=== PATIENT | female | born 1940 | race Two or more races ===

== ENCOUNTER 2020-05-31 05:45 | Day surgery (SDC) | payer OTHER ==
[~2020-05-31 05:45] MED LIST: ATACAND HCT 161 EACH PO; CALCIUM500 M2 PO; LORAZEPAM2 MG/M1; LOSARTAN-HCTZ1 EACH; MAGNESIUM200 MG PO; ONE DAILY MUL400 MCG PO; TRAZODONE HCL50 MG PO; ZOCOR20 MG
[2020-05-31] MEDS ORDERED: ULTRAM50 MG PO (09:00)
[2020-05-31] MEDS ORDERED: NEURONTIN300 MG PO (09:02)
== END 2020-05-31 14:05 | disposition home or self-care (01) ==
LOC: CIR.AMB 05:45
PROVIDERS: ATTEND Surgery
DX: K64.8 Other hemorrhoids (principal); K64.4 Residual hemorrhoidal skin tags; Z20.828 Contact with and (suspected) exposure to other viral communicable diseases; K64.2 Third degree hemorrhoids

== ENCOUNTER 2021-07-13 08:00 | Outpatient (CLI) | payer OTHER ==
[~2021-07-13 08:00] MED LIST changes: +NEURONTIN300 MG PO; +ULTRAM50 MG PO
== END 2021-07-13 08:30 | disposition home or self-care (01) ==
LOC: PPH VACUNA 08:00
PROVIDERS: ATTEND Emergency Medicine Pediatric Emergency Medicine
DX: Z23 Encounter for immunization (principal)
CPT/HCPCS: 90686; G0008